=== PATIENT | female | born 1955 ===

== ENCOUNTER 2017-09-16 08:45 | Day surgery (SDC) | payer MEDICAID ==
[2017-09-12 13:46] VITALS: BMI 24.9
[2017-09-16 09:33] LABS: HEMOGLOBIN 14.3 g/dL (12.0-16.0); MEAN CELL VOLUME 90.8 fl (80.0-105.0); MEAN CORPUSCULAR HEMOGLOBIN 30.6 pg (25.0-35.0); MEAN CORPUSCULAR HGB CONC 33.6 g/dl (31.0-37.0); MEAN PLATELET VOLUME 10.7 fl (7.0-11.0); RBC 4.68 10^6/uL (3.5-6.1); RED CELL DISTRIBUTION WIDTH 14.3 % (11.5-14.5); WHITE BLOOD COUNT 4.9 10^3/ul (4.5-11.0)
[2017-09-16 09:42] LABS: BLOOD UREA NITROGEN 15 mg/dL (7-21); CALCIUM 10.5 mg/dL (8.4-10.5); GFR AFRICAN-AMERICAN > 60; GFR NON-AFRICAN AMERICAN > 60
[2017-09-16 09:49] LABS: INR 0.91 (0.93-1.08); PARTIAL THROMBOPLASTIN TIME 30.8 Seconds (25.1-36.5); PROTHROMBIN TIME 10.4 SECONDS (9.4-12.5)
[2017-09-16] MEDS ORDERED: Midazolam 2 MG/2 ML VIAL ONE (11:30)
[2017-09-16] MEDS ORDERED: Oxycodone/Acetaminophen 5/325 mg Tab PO PRN (12:03)
[2017-09-16] MEDS ORDERED: Sodium Chloride 0.45% 1,000 ML IV SCH (12:15)
[2017-09-16 12:43] VITALS: O2SAT 100
[2017-09-16 13:00] VITALS: BP 121/42; PULSE 50; RESP 18; TEMP 97.6
--- NOTE | 2017-09-16 19:19 | US ---
PROCEDURE: Ultrasound-guided right thyroid fine needle aspiration biopsy. CLINICAL HISTORY: Multiple small thyroid nodules. Dominant 14 mm heterogeneous nodule in the right lower pole. Evaluate for malignancy. PHYSICIAN(S): Luis Glynn M.D. TECHNIQUE: The relative risks and indications for the procedure were explained to the patient and consent obtained. The patient was placed supine on the stretcher with the neck extended and preliminary sonography of the thyroid performed. This reveal 14 mm heterogeneous nodule in the right lower pole. The neck was prepped and draped in the usual sterile fashion. Conscious sedation and monitoring were provided throughout the procedure by a nurse. 1% Xylocaine was used to anesthetize the skin and soft tissues at the access site. Three passes with a 22-gauge needle were performed under ultrasound guidance for fine needle aspiration of the 14 mm hypoechoic nodule in the right thyroid. The slides were reviewed by pathology and deemed adequate. The patient tolerated the procedure well. IMPRESSION: 1. Ultrasound guided fine needle aspiration of a 14 mm heterogeneous hypoechoicnodule in the right thyroid.
== END 2017-09-16 14:30 | disposition home or self-care (01) ==
LOC: SDS 08:45
PROVIDERS: ATTEND Radiology Vascular & Interventional Radiology
DX: E04.2 Nontoxic multinodular goiter (principal)
CPT/HCPCS: 10022; 36415; 76942; 80048; 85027; 85610; 85730; 88173; 88305; J2250; J2405; J3010; J7030